=== PATIENT | female | born 1985 | race Two or more races ===

== ENCOUNTER 2023-11-08 06:54 | Emergency (ER) | payer MEDICAID, OTHER ==
[~2023-11-08] VITALS: Ht 162.6 cm; Wt 90.9 kg
[2023-11-08] MEDS: cefTRIAXone 1GM/50ML D5W 50 ML IV ONE (07:57)
[2023-11-08] MEDS: ONDANSETRON HCL 4 MG/2 ML VIAL IV ONE (07:57)
[2023-11-08] MEDS: MORPHINE SULFATE 4 MG/ML SYR/VIAL IV ONE (07:58)
[2023-11-08] MEDS: TETANUS-DIPTH-ACEL PERTUSSIS 0.5ML SYR Tdap IM ONE (07:59)
[2023-11-08 08:02] VITALS: PULSE 96; RESP 18; O2SAT 97
[2023-11-08 08:43] VITALS: TEMP 98.7; O2SAT 99
[2023-11-08] MEDS: LABETALOL HCL 5 MG/ML 4ML SYRINGE IV ONE (08:57)
[2023-11-08 08:58] VITALS: BP 143/83; PULSE 98; RESP 17
== END 2023-11-08 09:05 | disposition short-term general hospital (02) ==
LOC: ER 06:54 → EDBD 06:54 → ER 09:05
DX: S01.511A Laceration without foreign body of lip, initial encounter (principal); I10 Essential (primary) hypertension; W54.0XXA Bitten by dog, initial encounter; Y93.89 Activity, other specified; Y92.89 Other specified places as the place of occurrence of the external cause; Y99.8 Other external cause status
CPT/HCPCS: 90471; 90715; 96365; 96375; 99285; J0696; J2270; J2405